=== PATIENT | male | born 1950 | race American Indian/Alaskan Native ===

== ENCOUNTER 2016-11-23 09:07 | Outpatient (CLI) | payer OTHER ==
--- NOTE | 2016-11-23 10:02 | XRay Report ---
CHEST 2 VIEWS INDICATION: Asthma, pneumonia. COMPARISON: None similar. FINDINGS: PA and lateral chest radiographs demonstrate normal cardiomediastinal silhouette. Clear lungs. Left hemidiaphragm minimally elevated. Mild thoracic spine degenerative changes. CONCLUSION: No acute disease. Thank you for the opportunity to participate in this patient's care.
== END 2016-11-23 09:08 | disposition home or self-care (01) ==
LOC: XRAY 09:07
PROVIDERS: ATTEND Internal Medicine
DX: J98.6 Disorders of diaphragm (principal); M47.894 Other spondylosis, thoracic region; Z87.09 Personal history of other diseases of the respiratory system
CPT/HCPCS: 71020

== ENCOUNTER 2017-03-11 07:49 | Outpatient (CLI) | payer OTHER ==
--- NOTE | 2017-03-11 09:20 | XRay Report ---
ROUTINE CHEST, TWO VIEWS: HISTORY: Asthmatic bronchitis, cough. The trachea, heart, mediastinal contour, lung loredo and bony thorax are unremarkable. No significant change since 11/23/16. IMPRESSION: Unremarkable chest x-ray.
--- NOTE | 2017-03-11 09:23 | XRay Report ---
CERVICAL SPINE, 5 VIEWS History: Cervicalgia. There is reversal of the normal cervical lordosis. No evidence for fracture, subluxation or bone lesion. Minimal multilevel degenerative disc disease and facet arthropathy are identified. The prevertebral soft tissues are normal thickness. IMPRESSION: Reversal of the cervical lordosis. Minimal spondylosis. No acute process is noted.
== END 2017-03-11 07:50 | disposition home or self-care (01) ==
LOC: XRAY 07:49
PROVIDERS: ATTEND Internal Medicine
DX: M50.30 Other cervical disc degeneration, unspecified cervical region (principal); M47.892 Other spondylosis, cervical region; M12.88 Other specific arthropathies, not elsewhere classified, other specified site; J45.909 Unspecified asthma, uncomplicated
CPT/HCPCS: 71020; 72050